=== PATIENT | male | born 1950 | race Caucasian/White ===

== ENCOUNTER 2017-05-14 17:53 | Emergency (ER) | payer MEDICARE, MEDICAID ==
[~2017-05-14] VITALS: Ht 188 cm; Wt 117.9 kg
[~2017-05-14 17:53] MED LIST: ASPIR 8181 MG ORAL; ATORVASTATIN CA20 MG ORAL; BENAZEPRIL HCL20 MG ORAL; CYCLOBENZAPRINE10 MG ORAL; ENALAPRIL1.25 MG/ML PO; FIORICET 50-321 EAC1 PO; FIORICET1 EA ORAL; IBUPROFEN600 MG ORAL; KEFLEX500 MG ORAL; NORCO 5-325 TA1 EACH ORAL; PEPCID40 MG PO; PROSCAR5 MG ORAL; REGLAN10 MG ORAL; TRAMADOL HCL50 MG ORAL
[2017-05-14 18:08] VITALS: BP 155/80
--- NOTE | 2017-05-14 18:11 | Emergency Room Report ---
History of Present Illness General Chief Complaint: Sore Throat Present Illness HPI 66-year-old male presents emergency department complaining of throat pain and that he describes as anteriorly located with hoarseness of his voice, and cough x3 days. Patient reports pain is exacerbated upon swallowing he denies fevers, chills, night sweats, significant changes in weight or history of thyroid disease or cancer. Patient states that he has a primary care provider however he doesn't even know his name as he never utilizes him. Patient reports that he frequently utilizes emergency department if he ever has any medical complaints. Patient reports been an active smoker. Denies swollen tender lymph nodes, jaw pain, neck pain or headache. He reports acute onset after swallowing 3 days ago. Denies erythema to the neck, wheezing, difficulty breathing, or halitosis. Pt. reports cough and mucus production. Reports hx of COPD. Denies CP, Palpitations, LOC, AMS, dizziness, Changes in Vision, Sensation , paresthesias, or a sudden severe headache. Allergies: Coded Allergies: No Known Allergies (Unverified , 08/23/14) Patient History Past Medical History: see triage record Past Surgical History: none Pertinent Family History: none Immunizations: UTD Reviewed Nursing Documentation: PMH: Agreed, PSxH: Agreed Nursing Documentation-PMH Hx Cardiac Problems: No Hx Hypertension: Yes Hx Pacemaker: No Hx Asthma: No Hx COPD: Yes Hx Diabetes: No Hx Cancer: No Hx Gastrointestinal Problems: No - Lt inguinal Herniorrhapy in 10, Rt inguinal Herniorrhapy in 1991 Hx Dialysis: No - left kidney cyst Hx Neurological Problems: Yes - Migraine headache Hx Cerebrovascular Accident: No Hx Seizures: No Review of Systems All Other Systems: negative except mentioned in HPI Physical Exam Vital Signs Date Time Temp Pulse Resp B/P (MAP) Pulse Ox O2 Delivery O2 Flow Rate FiO2 05/14/17 17:58 98.4 85 20 155/80 96 Room Air Sp02 EP Interpretation: reviewed, normal General Appearance: no apparent distress, alert, GCS 15, non-toxic Head: normocephalic, atraumatic ENT: hearing grossly normal, normal voice, uvula midline, moist mucus membranes , nasal congestion, pharyngeal erythema Neck: full range of motion, thyroid normal - grossly normal palpation, no meningismus, no bony tend Respiratory: chest non-tender, lungs clear, normal breath sounds, speaking full sentences Cardiovascular #1: regular rate, rhythm, no edema Musculoskeletal: back normal, gait/station normal, normal range of motion, non- tender Neurologic: alert, oriented x3, responsive, motor strength/tone normal, sensory intact, normal gait, speech normal, grossly normal Psychiatric: judgement/insight normal Skin: normal color, no rash, warm/dry, well hydrated Lymphatic: other - bilateral subparotid LAD. Medical Decision Making PA Attestation Dr. Parker is my supervising Physician whom patient management has been discussed with. Diagnostic Impression: Primary Impression: Throat pain in adult Additional Impression: Laryngitis, acute ER Course 66-year-old male presents emergency department complaining of throat pain and that he describes as anteriorly located with hoarseness of his voice, and cough x3 days. Patient reports pain is exacerbated upon swallowing he denies fevers, chills, night sweats, significant changes in weight or history of thyroid disease or cancer. Patient states that he has a primary care provider however he doesn't even know his name as he never utilizes him. Patient reports that he frequently utilizes emergency department if he ever has any medical complaints. Patient reports been an active smoker. Denies swollen tender lymph nodes, jaw pain, neck pain or headache. He reports acute onset after swallowing 3 days ago. Denies erythema to the neck, wheezing, difficulty breathing, or halitosis. Pt. reports cough and mucus production. Reports hx of COPD. Denies CP, Palpitations, LOC, AMS, dizziness, Changes in Vision, Sensation , paresthesias, or a sudden severe headache. Ddx considered but are not limited to: pharyngitis, strep, [employer], [place]igs angina, URI , Malignancy, Thyroiditis , abscess just to name a few. Vital signs: are WNL, pt. is afebrile H&PE are most consistent with: Pharyngitis and laryngitis, and physical exam as well as vital signs do not suggest acute abscess or infection at this time. ORDERS: None required at this time as the diagnosis is clinical ED INTERVENTIONS: -Viscous Lidocaine PO -I discussed with this patient that followup with a PMD and possibly ENT specialist is highly recommended I also discussed with patient that an emergency department is not mentioned replace UA office visits with primary care provider. I discussed with this patient that there is a possibility that this could indicate malignancy or thyroid ophthalmology however not in acute emergent condition at this time. Discussed with the patient to return with worsening or new symptoms otherwise close outpatient followup is necessary. Will treat conservatively. DISCHARGE: At this time pt. is stable for d/c to home. Will provide printed patient care instructions, and any necessary prescriptions. Care plan and follow up instructions have been discussed with the patient prior to discharge. Last Vital Signs Date Time Temp Pulse Resp B/P (MAP) Pulse Ox O2 Delivery O2 Flow Rate FiO2 05/14/17 17:58 98.4 85 20 155/80 96 Room Air Disposition: HOME, SELF-CARE Condition: Stable Scripts Guaifenesin (Guaifenesin) 1,200 Mg Tab.er.12h 1200 MG PO BID, #20 TAB Prov: Amairani Spence 05/14/17 Albuterol Sulfate* (ALBUTEROL SULFATE MDI*) 8.5 Gm Hfa.aer.ad 2 PUFF INH Q6H, #1 INH 0 Refills Prov: Amairani Spence 05/14/17 Codeine/Promethazine Hcl* (PROMETHAZINE-CODEINE SYRUP*) 118 Ml Syrup 5 ML ORAL Q6H Y for For Cough, #120 ML 0 Refills Prov: Amairani Spence 05/14/17 Lidocaine HCl 2% Viscous (Lidocaine HCl 2% Viscous) 100 Ml Solution 15 ML ORAL QID, #150 ML Prov: Amairani Spence 05/14/17 Ibuprofen* (MOTRIN*) 600 Mg Tablet 600 MG ORAL THREE TIMES A DAY, #30 TAB 0 Refills Prov: Amairani Spence 05/14/17 Patient Instructions: Sore Throat, Laryngitis Additional Instructions: Take medications as directed. Follow up with a Primary Care Provider for referral to see an ENT Specialist within 3-5 days --Please review list of primary care clinics, if you do not already have a primary care provider Return sooner to ED if new symptoms occur, or current symptoms become worse. Do not drink alcohol, drive, or operate heavy machinery while taking Cough Syrup as this may cause drowsiness. - Please note that this Emergency Department Report was dictated using [employer] machine adjuster technology software, occasionally this can lead to erroneous entry secondary to interpretation by the dictation equipment. Amairani Spence May 14, 2017 18:11
[2017-05-14] MEDS ORDERED: Lidocaine 2% Visc 15ml soln ORAL ONE (18:15)
[2017-05-14] MEDS ORDERED: GUAIFENESIN1200 MG PO (18:35)
[2017-05-14] MEDS ORDERED: PROMETHAZINE-C118 M1 ORAL (18:35)
[2017-05-14] MEDS ORDERED: IBUPROFEN600 MG ORAL (18:35)
[2017-05-14] MEDS ORDERED: ALBUTEROL SULF8.5 GM INH (18:35)
[2017-05-14] MEDS ORDERED: LIDOCAINE VISC100 ML ORAL (18:35)
[2017-05-14 18:45] VITALS: BP 155/80
== END 2017-05-14 18:45 | disposition home or self-care (01) ==
LOC: EMR 18:31
DX: J04.0 Acute laryngitis (principal); I10 Essential (primary) hypertension; J44.9 Chronic obstructive pulmonary disease, unspecified
CPT/HCPCS: 99284

== ENCOUNTER 2019-02-14 10:51 | Emergency (ER) | payer MEDICARE, MEDICAID ==
[~2019-02-14] VITALS: Ht 188 cm; Wt 108.9 kg
[~2019-02-14 10:51] MED LIST changes: +ALBUTEROL SULF8.5 GM INH; +GUAIFENESIN1200 MG PO; +LIDOCAINE VISC100 ML ORAL; +PROMETHAZINE-C118 M1 ORAL
--- NOTE | 2019-02-14 11:04 | NUR ---
ED Nurse Note:Patient walked in to ER c/o of lower back pain. Per patient he had an unjury lifting a heavy object back in 2009 and he stated that recently it was aggravated when he lifted a ac machine. Jimmy grimacing noted. No guarding noted. Denies taking pain medication prior to coming to ER. Patient alert and oriented and able to ambulate without assistance.
[2019-02-14 11:11] VITALS: BP 109/73
[2019-02-14] MEDS ORDERED: ROBAXIN-750750 MG PO (11:25)
[2019-02-14] MEDS ORDERED: ACETAMINOPHEN500 M5 ORAL (11:25)
[2019-02-14] MEDS ORDERED: NAPROXEN250 MG ORAL (11:25)
[2019-02-14] MEDS ORDERED: LIDODERM700 M1 TOPIC (11:25)
--- NOTE | 2019-02-14 11:25 | Emergency Room Report ---
History of Present Illness General Chief Complaint: Back Pain-No Injury Source: Patient Present Illness HPI 68-year-old male history of chronic back pain presents with right lower back ache, started this morning, aggravated with movement alleviated with rest severity is moderate, intermittent, no bowel bladder retention/incontinence, no perianal numbness, patient states he may have exacerbated it, patient presents for evaluation. Allergies: Coded Allergies: No Known Allergies (Unverified , 08/23/14) Patient History Past Medical History: see triage record Social History: Reports: smoking Reviewed Nursing Documentation: PMH: Agreed; PSxH: Agreed Nursing Documentation-PMH Hx Cardiac Problems: No Hx Hypertension: Yes Hx Pacemaker: No Hx Asthma: No Hx COPD: Yes Hx Diabetes: No Hx Cancer: No Hx Gastrointestinal Problems: No - Lt inguinal Herniorrhapy in 1958, Rt inguinal Herniorrhapy in 1991 Hx Dialysis: No - left kidney cyst Hx Neurological Problems: Yes - Migraine headache Hx Cerebrovascular Accident: No Hx Seizures: No Review of Systems All Other Systems: negative except mentioned in HPI Physical Exam Vital Signs Date Time Temp Pulse Resp B/P (MAP) Pulse Ox O2 Delivery O2 Flow Rate FiO2 02/14/19 10:58 98.6 89 17 109/73 (85) 93 Room Air General Appearance: well appearing, no apparent distress Head: normocephalic, atraumatic ENT: hearing grossly normal, normal voice Neck: full range of motion, supple Respiratory: no respiratory distress, speaking full sentences Musculoskeletal: other - Right lower backpackers manager to palpation, gait intact, 5 out of 5 strength Neurologic: alert, normal gait Psychiatric: mood/affect normal Skin: no rash Medical Decision Making Diagnostic Impression: Primary Impression: Back pain Qualified Codes: M54.41 - Lumbago with sciatica, right side ER Course The patient presents with acute onset of back pain acute on chronic. Clinically this patient can be ruled out for serious pathology given there is a completely normal neurological exam, no history of IV drug use, and no history of bowel or bladder incontinence, no perianal numbness/tingling, no constipation or urinary retention. Once the patient's pain was adequately controlled, the patient was able to ambulate and be discharged in stable condition with anticipatory guidance provided. Strict return precautions discussed Last Vital Signs Date Time Temp Pulse Resp B/P (MAP) Pulse Ox O2 Delivery O2 Flow Rate FiO2 02/14/19 11:11 98.6 17 109/73 93 Room Air 02/14/19 10:58 89 Disposition: HOME, SELF-CARE Condition: Stable Scripts Methocarbamol* (ROBAXIN-750*) 750 Mg Tablet 750 MG PO QID, #28 TAB 0 Refills Prov: Aidan Miles MD 02/14/19 Acetaminophen (Acetaminophen) 500 Mg Tablet 1000 MG ORAL Q8H PRN for For Pain, #60 TAB Prov: Aidan Miles MD 02/14/19 Naproxen* (NAPROSYN*) 250 Mg Tablet 500 MG ORAL BID PRN for For Pain, #60 TAB 0 Refills Prov: Aidan Miles MD 02/14/19 Lidocaine Patch* (Lidoderm Patch*) 1 Each Adh..patch 1 PATCH TOPIC DAILY, #30 PATCH Patch(es) may remain in place for up to 12 hours in any 24-hour period. Prov: Aidan Miles MD 02/14/19 Referrals: [facility] Patient Instructions: Back Pain, Adult Additional Instructions: The patient was provided with discharge instructions, notified to follow-up with a primary care doctor and or specialist in the next 24-48 hours, and to return to the ED if they have worsening of their symptoms. Please note that this report is being documented using [employer] technology. This can lead to erroneous entry secondary to incorrect interpretation by the dictating instrument. Aidan Miles MD Feb 14, 2019 11:25
[2019-02-14] MEDS ORDERED: Ketorolac 60mg Inj IM ONE (11:30)
[2019-02-14] MEDS ORDERED: oxyCODONE HCL/Acetaminophen 5/325mg ORAL ONE (11:30)
[2019-02-14] MEDS ORDERED: Dexamethasone 4mg/ml vial IM ONE (11:30)
--- NOTE | 2019-02-14 12:23 | NUR ---
ER DISCHARGE NOTE: Patient is cleared to be discharged per ERMD, pt is aox4, on room air, with stable vital signs. pt was given dc and prescription instructions, pt was able to verbalize understanding, pt id band removed. pt is able to ambulate with steady gait. pt took all belongings.
[2019-02-14 12:24] VITALS: BP 110/78
== END 2019-02-14 12:23 | disposition home or self-care (01) ==
LOC: EMR 11:25
DX: M54.41 Lumbago with sciatica, right side (principal); F17.200 Nicotine dependence, unspecified, uncomplicated; I10 Essential (primary) hypertension; J44.9 Chronic obstructive pulmonary disease, unspecified
CPT/HCPCS: 96372; 99283; J1100

== ENCOUNTER 2019-03-14 02:08 | Emergency (ER) | payer MEDICARE, MEDICAID ==
[~2019-03-14] VITALS: Ht 185.4 cm; Wt 111.1 kg
[~2019-03-14 02:08] MED LIST changes: +ACETAMINOPHEN500 M5 ORAL; +LIDODERM700 M1 TOPIC; +NAPROXEN250 MG ORAL; +ROBAXIN-750750 MG PO
--- NOTE | 2019-03-14 02:20 | NUR ---
ED Nurse Note: PT IS AAOX4, VSS, NO ACUTE DISTRESS. WALK-IN PATIENT WITH COMPLAINTS OF MIGRAINE HEADACHE SINCE 1999, 12/17. HE IS UNABLE TO SLEEP AND PAIN INCREASES WHEN HE LAYS DOWN. PT IS WITH
[2019-03-14 02:25] VITALS: BP 158/98
[2019-03-14] MEDS ORDERED: Dexamethasone 4mg/ml vial IVP ONE (02:30)
[2019-03-14] MEDS ORDERED: DiphenhydrAMINE 50mg/ml Inj IVP ONE (02:30)
[2019-03-14] MEDS ORDERED: Ketorolac 30mg Inj IV ONE (02:30)
[2019-03-14] MEDS ORDERED: Acetaminophen 500mg (ES) tab ORAL ONE (02:30)
--- NOTE | 2019-03-14 02:45 | NUR ---
ED Nurse Note: PT WITH DRUM CLEANER
--- NOTE | 2019-03-14 03:03 | Emergency Room Report ---
History of Present Illness General Chief Complaint: Headache Source: Patient Present Illness HPI [age]-year-old male presents with headache that started at 8:00, gradual onset throbbing, frontal aspect of his head, aggravated with in different positions standing leaning forward, no photosensitivity no fevers no chills no neck stiffness, patient states is very similar to his previous migraines, severity is moderate, constant no nausea no vomiting no abdominal pain no chest pain no shortness of breath patient denies any numbness or weakness patient presents for evaluation. Allergies: Coded Allergies: No Known Allergies (Unverified , 08/23/14) Patient History Past Medical History: see triage record Social History: Reports: smoking Reviewed Nursing Documentation: PMH: Agreed; PSxH: Agreed Nursing Documentation-PMH Hx Cardiac Problems: No Hx Hypertension: Yes Hx Pacemaker: No Hx Asthma: No Hx COPD: Yes - EMPHYSEMA Hx Diabetes: No Hx Cancer: No Hx Gastrointestinal Problems: No - Lt inguinal Herniorrhapy in 1958, Rt inguinal Herniorrhapy in 1991 Hx Dialysis: No - left kidney cyst Hx Neurological Problems: Yes - ARTHRITIS Hx Cerebrovascular Accident: No Hx Seizures: No Review of Systems All Other Systems: negative except mentioned in HPI Physical Exam Vital Signs Date Time Temp Pulse Resp B/P (MAP) Pulse Ox O2 Delivery O2 Flow Rate FiO2 03/14/19 02:14 98.2 75 19 171/101 (124) 93 Room Air Sp02 EP Interpretation: reviewed, normal General Appearance: well appearing, no apparent distress, alert Head: normocephalic, atraumatic Eyes: bilateral eye PERRL, bilateral eye EOMI ENT: uvula midline, moist mucus membranes Neck: supple, thyroid normal, supple/symm/no masses Respiratory: lungs clear, no respiratory distress, no retraction, no accessory muscle use Cardiovascular #1: normal peripheral pulses, regular rate, rhythm, no edema, no gallop, no murmur Gastrointestinal: non tender, soft, no guarding, no rebound Musculoskeletal: normal inspection Neurologic: alert, oriented x3, track laminating machine tender III-XII nml as tested, motor strength/tone normal, sensory intact, normal gait, speech normal, other - Finger-nose testing intact, no pronator drift, Romberg negative. Psychiatric: mood/affect normal Skin: no rash, warm/dry Medical Decision Making Diagnostic Impression: Primary Impression: Headache Qualified Codes: R51 - Headache ER Course Based on the patient's history and physical there is very low clinical suspicion for significant intracranial pathology. There are no red flags of VALDEZ, not sudden in onset, not maximal in onset, no acute neurological findings, no fever with head stiffness. History of headaches yes Low suspicion for subarachnoid hemorrhage, encephalitis, meningitis. Given headache cocktail with significant improvement, CT brain shows no acute processes, will start patient on riboflavin Disposition home with return precautions CT/MRI/US Diagnostic Results CT/MRI/US Diagnostic Results : Impression Preliminary Findings Only See Final Report For Complete Findings CT HEAD Without Contrast: No acute hemorrhage, hydrocephalus, or mass effect. No acute fracture. Paranasal sinuses and mastoids are clear. Radiologist: Van Cole MD Study ready at 03:16 and initial results transmitted at 03:21 Last Vital Signs Date Time Temp Pulse Resp B/P (MAP) Pulse Ox O2 Delivery O2 Flow Rate FiO2 03/14/19 02:25 98.2 58 19 158/98 96 Room Air Disposition: HOME, SELF-CARE Condition: Stable Scripts Riboflavin (RIBOFLAVIN) 100 Mg Tablet 400 MG PO DAILY, #120 TAB Prov: Aidan Miles MD 03/14/19 Referrals: NON PHYSICIAN (PCP) [facility] Patient Instructions: General Headache Without Cause Additional Instructions: The patient was provided with discharge instructions, notified to follow-up with a primary care doctor and or specialist in the next 24-48 hours, and to return to the ED if they have worsening of their symptoms. Please note that this report is being documented using [employer] technology. This can lead to erroneous entry secondary to incorrect interpretation by the dictating instrument. FOLLOW-UP WITH NEUROLOGY Aidan Miles MD Mar 14, 2019 03:03
--- NOTE | 2019-03-14 03:20 | NUR ---
ED Nurse Note: PT SLEEPING
--- NOTE | 2019-03-14 03:23 | Diagnostic Imaging Report ---
Indications: Headache for 2 hours Technique: Spiral acquisitions obtained through the brain. Angled axial and coronal 5 x 5 mm slices were reconstructed. Total dose length product 1794 mGycm. CTDI vol(s) 74 mGy. Dose reduction achieved using automated exposure control Comparison: None. Findings: No acute intracranial hemorrhage or edema. No mass effect nor midline shift. Normal bhatt-white differentiation. Visualized orbits and sinuses are unremarkable. The mastoids are clear. Impression: Negative This agrees with the preliminary interpretation provided overnight by [facility] teleradiology service. The CT scanner at [facility] is accredited by the [employer] and the scans are performed using protocols designed to limit radiation exposure to as low as reasonably achievable to attain images of sufficient resolution adequate for diagnostic evaluation.
[2019-03-14] MEDS ORDERED: RIBOFLAVIN100 MG PO (03:29)
[2019-03-14 03:40] VITALS: BP 163/98
--- NOTE | 2019-03-14 03:40 | NUR ---
ER DISCHARGE NOTE: Patient is cleared to be discharged per ERMD, pt is aox4, on room air, with stable vital signs. pt was given dc and prescription instructions, pt was able to verbalize understanding, pt id band and iv site removed without complications. pt is able to ambulate with steady gait. pt took all belongings. Pt stated I feel great; my pain is 2/10. Pt walkd out of ER steady gait.
== END 2019-03-14 03:40 | disposition home or self-care (01) ==
LOC: EMR 02:31
DX: R51 Headache (principal); F17.200 Nicotine dependence, unspecified, uncomplicated; I10 Essential (primary) hypertension; J44.9 Chronic obstructive pulmonary disease, unspecified; M19.90 Unspecified osteoarthritis, unspecified site
CPT/HCPCS: 70450; 96365; 96375; 99284; J0780; J1100; J1200; J1885; J7030